=== PATIENT | female | born 2000 | race Caucasian/White ===

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

== ENCOUNTER 2018-03-31 10:42 | Emergency (ER) | payer MEDICAID ==
[2018-03-31] MEDS ORDERED: TETRACAINE HCL 0.5% OPH SOLN 4 ML OD ONE (10:53)
[2018-03-31 10:56] VITALS: BP 129/82
--- NOTE | 2018-03-31 11:10 | ER Document Report ---
ED Eye Complaint - General Chief Complaint: Eye Problem Stated Complaint: EYE PAIN Time Seen by Provider: 03/31/18 10:51 Mode of Arrival: Ambulatory Information source: Patient Notes: 17-year-old female presented to ED for complaint of redness swelling and discomfort to the right upper inner eyelid that started yesterday. She states got worse this morning and was swollen. States there is no itchiness drainage noted. She states there was no matting to the eyelids. She states there is no visual disturbances. She states it just is painful. TRAVEL OUTSIDE OF THE [place] IN LAST 30 DAYS: No - HPI Onset: Yesterday Eye location: Right Injury: No Occurred at: Home Quality of pain: No pain Severity: Moderate Pain Level: 3 Associated symptoms: Pain, Redness, Other - Stye to the inner corner of the right upper lid. denies: Matting, Eyelid swelling, Orbital swelling - Related Data Allergies/Adverse Reactions: Penicillins Allergy (Verified 03/31/18 10:45) Past Medical History - General Information source: Patient - Social History Smoking Status: Never Smoker Cigarette use (# per day): No Chew tobacco use (# tins/day): No Smoking Education Provided: No Frequency of alcohol use: None Drug Abuse: Marijuana Occupation: [employer] Lives with: Alone Family History: Reviewed & Not Pertinent Patient has suicidal ideation: No Patient has homicidal ideation: No - Past Medical History Cardiac Medical History: Reports: None Pulmonary Medical History: Reports: None EENT Medical History: Reports: None Neurological Medical History: Reports: Hx Migraine Endocrine Medical History: Reports: None Renal/ Medical History: Reports: None Malignancy Medical History: Reports: None GI Medical History: Reports: None Musculoskeletal Medical History: Reports None Skin Medical History: Reports None Psychiatric Medical History: Reports: Hx Depression Traumatic Medical History: Reports: None Infectious Medical History: Reports: None Past Surgical History: Reports: Hx Appendectomy - Immunizations Immunizations up to date: Yes Hx Diphtheria, Pertussis, Tetanus Vaccination: Yes Review of Systems - Review of Systems Constitutional: No symptoms reported EENT: Eye pain. denies: Eye discharge, Blurred vision, Tearing, Double vision Cardiovascular: No symptoms reported Respiratory: No symptoms reported Gastrointestinal: No symptoms reported Genitourinary: No symptoms reported Female Genitourinary: No symptoms reported Musculoskeletal: No symptoms reported Skin: No symptoms reported Hematologic/Lymphatic: No symptoms reported Neurological/Psychological: No symptoms reported -: Yes All other systems reviewed and negative Physical Exam - Vital signs Vitals: Temp Pulse Resp BP Pulse Ox 99.0 F 78 16 129/82 H 98 03/31/18 10:55 03/31/18 10:55 03/31/18 10:55 03/31/18 10:55 03/31/18 10:55 Interpretation: Normal - General General appearance: Appears well, Alert - HEENT Head: Normocephalic, Atraumatic Eyes: Normal, Other - Stye to the right upper inner eyelid Eyelashes: Normal Pupils: PERRL Ears: Normal External canal: Normal Tympanic membrane: Normal Sinus: Normal Nasal: Normal Mouth/Lips: Normal Pharynx: Normal Neck: Normal - Respiratory Respiratory status: No respiratory distress Chest status: Nontender Breath sounds: Normal Chest palpation: Normal - Cardiovascular Rhythm: Regular Heart sounds: Normal auscultation Murmur: No - Abdominal Inspection: Normal Distension: No distension Bowel sounds: Normal Tenderness: Nontender Organomegaly: No organomegaly - Back Back: Normal, Nontender - Extremities General upper extremity: Normal inspection, Nontender, Normal color, Normal ROM , Normal temperature General lower extremity: Normal inspection, Nontender, Normal color, Normal ROM , Normal temperature, Normal weight bearing. No: Mandy's sign - Neurological Neuro grossly intact: Yes Cognition: Normal Orientation: AAOx4 Facundo Coma Scale Eye Opening: Spontaneous Facundo Coma Scale Verbal: Oriented Preston Coma Scale Motor: Obeys Commands Preston Coma Scale Total: 15 Speech: Normal Motor strength normal: LUE, RUE, LLE, RLE Sensory: Normal - Psychological Associated symptoms: Normal affect, Normal mood - Skin Skin Temperature: Warm Skin Moisture: Dry Skin Color: Normal Course - Vital Signs Vital signs: Temp Pulse Resp BP Pulse Ox 99.0 F 78 16 129/82 H 98 03/31/18 10:55 03/31/18 10:55 03/31/18 10:55 03/31/18 10:55 03/31/18 10:55 Discharge - Discharge Clinical Impression: external stye right eye Internal hordeolum of right eye Qualifiers: Eyelid: upper Qualified Code(s): H00.021 - Hordeolum internum right upper eyelid Condition: Stable Disposition: HOME, SELF-CARE Instructions: [facility] Additional Instructions: Sty Your examination reveals that you have a sty. This is an infection of a hair follicle in the eyelid. As the infection progresses, it forms an abscess along the edge of the eyelid. A sty causes a lot of swelling and tenderness. As the body fights the infection, a lump forms. The knot slowly goes away over a couple of weeks. Treatment includes applying warm compresses to the eye for 10 to 15 minutes every two or three hours. Usually, the infection will drain from the abscess spontaneously, however, some sties require surgical drainage. You may be given antibiotic eye drops to prevent the infection from spreading to the surface of the eye. If the doctor is concerned that the infection is severe, you may be given antibiotics by mouth or shot. Call the doctor at once if vision decreases, if swelling becomes severe, or if eye pain becomes severe. See the doctor for follow-up should you fail to improve as expected. FOLLOW-UP CARE: If you have been referred to a physician for follow-up care, call the physician s office for an appointment as you were instructed or within the next two days. If you experience worsening or a significant change in your symptoms, notify the physician immediately or return to the Emergency Department at any time for re-evaluation. Forms: Elevated Blood Pressure Referrals: COLLINS MILLIGAN MD [ACTIVE STAFF] - Follow up tomorrow
== END 2018-03-31 11:45 | disposition home or self-care (01) ==
LOC: ER 10:42
DX: H00.021 Hordeolum internum right upper eyelid (principal); H00.013 Hordeolum externum right eye, unspecified eyelid; Z88.0 Allergy status to penicillin
CPT/HCPCS: 99283; J3490

== ENCOUNTER 2019-06-07 18:29 | Emergency (ER) | payer SELFPAY ==
[2019-06-07] MEDS ORDERED: ONDANSETRON 4 MG TAB.RAPDIS PO ONE (19:29)
[2019-06-07 20:11] LABS: ABSOLUTE BASOPHILS # (AUTO) 0.1 10^3/uL (0.0-0.2); ABSOLUTE EOSINOPHILS # (AUTO) 0.6 10^3/uL (0.0-0.6); ABSOLUTE LYMPHOCYTES (AUTO) 1.9 10^3/uL (0.5-4.7); ABSOLUTE MONOCYTES (AUTO) 1.3 10^3/uL (0.1-1.4); ABSOLUTE NEUT (AUTO) 15.7 10^3/uL (1.7-8.2); BASOPHILS % (AUTO) 0.5 % (0-2); HEMATOCRIT 40.2 % (36.0-47.0); HEMOGLOBIN 13.6 g/dL (12.0-15.5); LYMPHOCYTES % (AUTO) 9.9 % (13-45); MEAN CORPUSCULAR HGB CONC 33.9 g/dL (32.0-36.0); MEAN CORPUSCULAR VOLUME 83 fl (80-97); MONOCYTES % (AUTO) 6.5 % (3-13); PLATELET COUNT 288 10^3/uL (150-450); RED BLOOD COUNT 4.86 10^6/uL (3.72-5.28); RED CELL DISTRIBUTION WIDTH 14.3 % (11.5-14.0); SEGMENTED NEUTROPHILS % (AUTO) 80.1 % (42-78); TOTAL CELLS COUNTED % (AUTO) 100 %; WHITE BLOOD COUNT 19.6 10^3/uL (4.0-10.5)
[2019-06-07 20:22] LABS: APPEARANCE,URINE CLOUDY; BILIRUBIN,URINE NEGATIVE (NEGATIVE); COLOR,URINE YELLOW; GLUCOSE, URINE NEGATIVE (NEGATIVE); KETONES,URINE NEGATIVE (NEGATIVE); PROTEIN,URINE 30 mg/dL (NEGATIVE); URINE SPECIFIC GRAVITY 1.023; UROBILINOGEN,URINE NEGATIVE mg/dL (<2.0)
[2019-06-07 20:27] LABS: A TYPE INFLUENZA AG NEGATIVE (NEGATIVE); B INFLUENZA AG NEGATIVE (NEGATIVE)
[2019-06-07 20:35] LABS: ALBUMIN 4.2 g/dL (3.5-5.0); ALKALINE PHOSPHATASE 65 U/L (38-126); ANION GAP 12 (5-19); ASPARTATE AMINO TRANSFERASE 17 U/L (14-36); BILIRUBIN,TOTAL 0.6 mg/dL (0.2-1.3); BLOOD UREA NITROGEN 7 mg/dL (7-20); CALCIUM 9.2 mg/dL (8.4-10.2); CARBON DIOXIDE 22 mmol/L (22-30); CHLORIDE 105 mmol/L (98-107); GLUCOSE 89 mg/dL (75-110); POTASSIUM 3.9 mmol/L (3.6-5.0); TOTAL PROTEIN 7.3 g/dL (6.3-8.2)
--- NOTE | 2019-06-07 23:29 | RADIOLOGY REPORT (SQ) ---
EXAM DESCRIPTION: XR CHEST 2 VIEWS COMPLETED DATE/TME: 06/07/2019 22:54 CLINICAL HISTORY: 19 years, Female, cough COMPARISON: None. NUMBER OF VIEWS: 2 TECHNIQUE: 2 views of the chest LIMITATIONS: None. FINDINGS: Heart size normal. Lungs clear. No pneumothorax IMPRESSION: Negative chest copyright 2011 [employer]- All Rights Reserved
[2019-06-08] MEDS ORDERED: IPRATROPIUM/ALBUTEROL 0.5-2.5 MG/3 ML AMPUL NEB ONE (00:27)
[2019-06-08] MEDS ORDERED: NORMAL SALINE 1000 ML 1,000 ML IV ONE (00:27)
[2019-06-08] MEDS ORDERED: METOCLOPRAMIDE HCL INJ/PF 10 MG/2 ML SDV IV ONE (00:27)
--- NOTE | 2019-06-08 00:48 | ER Document Report ---
ED Flu Like - General Chief Complaint: Flu Symptoms Stated Complaint: FEVER,VOMITING,BODY ACHES Time Seen by Provider: 06/07/19 19:23 Notes: CHIEF COMPLAINT: Cough, vomiting with cough, fever HPI: 19-year-old female presenting with a sibling for similar complaints complaining of cough over the last 2 days with generalized body ache. Has had multiple episodes of vomiting today with coughing episodes. Patient feels like she is subjectively wheezing. States she has had a low-grade fever today. Denies abdominal pain or diarrhea. Denies chest pain. Complains of frontal headache and facial pain with congestion, complains of mild sore throat ROS: See HPI - all other systems were reviewed and are otherwise negative Constitutional: Positive fever Eyes: no drainage, no blurred vision ENT: Positive runny nose, positive sore throat, mild sinus pressure Cardiovascular: no chest pain Resp: Positive SOB, positive cough GI: Positive vomiting after cough, no diarrhea, no abdominal pain : no dysuria Integumentary: no rash Allergy: no hives Musculoskeletal: no extremity pain or swelling Neurological: no numbness/tingling, no weakness MEDICATIONS: I agree with the patient medications as charted by the RN. ALLERGIES: I agree with the allergies as charted by the RN. PAST MEDICAL HISTORY/PAST SURGICAL HISTORY: Reviewed and agree as charted by RN. SOCIAL HISTORY: Reviewed and agree as charted by RN. FAMILY HISTORY: No significant familial comorbid conditions directly related to patient complaint EXAM: Reviewed vital signs as charted by RN. CONSTITUTIONAL: Alert and oriented and responds appropriately to questions. Wel l-appearing; well-nourished, mild distress secondary to cough EYES: PERRL; Conjunctivae clear, sclerae non-icteric ENT: normal nose; positive clear rhinorrhea; moist mucous membranes; pharynx without lesions noted, no uvula edema or deviation, no tonsillar hypertrophy, phonation normal NECK: Supple without meningismus; non-tender; no cervical lymphadenopathy, no masses CARD: Tachycardic; no murmurs, no clicks, no rubs, no gallops; symmetric distal pulses RESP: Normal chest excursion without splinting or tachypnea; breath sounds clear and equal bilaterally; no wheezes, no rhonchi, no rales, pulse oximetry 99% on room air not hypoxic. Spastic cough is noted ABD/GI: Normal bowel sounds; non-distended; soft, non-tender, no rebound, no guarding; no palpable organomegaly or masses. BACK: The back appears normal and is non-tender to palpation, there is no CVA tenderness EXT: Normal ROM in all joints; non-tender to palpation; no cyanosis, no effusions, no edema SKIN: Normal color for age and race; warm; dry; good turgor; no acute lesions noted NEURO: Moves all extremities equally; Motor and sensory function intact PSYCH: The patient's mood and manner are appropriate. Grooming and personal hygiene are appropriate. MDM: 19-year-old female presenting for flulike symptoms for 2 days. Vomiting is mostly posttussive. Her lung sounds are clear to auscultation chest x-ray ordered in the triage process was negative for acute findings. Her lab work shows a moderate leukocytosis this may be reactive to the vomiting episode she has been having with the cough. She has absolutely no abdominal pain on exam. She has no infiltrate on x-ray suggesting pneumonia. She is tachycardic still, will give IV fluids, breathing treatment and reassess TRAVEL OUTSIDE OF THE [place] IN LAST 30 DAYS: No - Related Data Allergies/Adverse Reactions: Penicillins Allergy (Verified 03/31/18 10:45) Home Medications: birthcontrol, zoloft, buspar, naproxen, Past Medical History - Social History Smoking Status: Never Smoker Chew tobacco use (# tins/day): No Frequency of alcohol use: None Drug Abuse: Marijuana Family History: Reviewed & Not Pertinent Patient has suicidal ideation: No Patient has homicidal ideation: No Neurological Medical History: Reports: Hx Migraine Renal/ Medical History: Denies: Hx Peritoneal Dialysis Psychiatric Medical History: Reports: Hx Depression Past Surgical History: Reports: Hx Appendectomy - Immunizations Immunizations up to date: Yes Hx Diphtheria, Pertussis, Tetanus Vaccination: Yes Physical Exam - Vital signs Vitals: Temp Pulse Resp BP Pulse Ox 99.8 F 121 H 20 141/97 H 100 06/07/19 18:44 06/07/19 18:44 06/07/19 18:44 06/07/19 18:44 06/07/19 18:44 Course - Re-evaluation Re-evalutation: 06/08/19 02:39 Heart rate has improved. Patient feels better after breathing treatment states that she has an inhaler at home. Will write patient for Zofran for nausea although it sounded mostly posttussive. Her elevated leukocytosis was likely reactive to her vomiting episodes. She has no abdominal pain on repeat exam. No dysuria complaint. Sister had similar symptoms likely viral etiology - Vital Signs Vital signs: Temp Pulse Resp BP Pulse Ox 98.6 F 102 H 16 130/81 H 97 06/08/19 01:05 06/08/19 01:05 06/08/19 01:05 06/08/19 01:05 06/08/19 01:05 - Laboratory Result Diagrams: 06/07/19 19:28 06/07/19 19:28 Laboratory results interpreted by me: 06/07/19 06/07/19 06/07/19 19:28 19:28 19:28 WBC 19.6 H RDW 14.3 H Lymph % (Auto) 9.9 L Absolute Neuts (auto) 15.7 H Seg Neutrophils % 80.1 H Creatinine 0.43 L Urine Protein 30 H Urine Blood LARGE H Leukocyte Esterase Rfl TRACE H Discharge - Discharge Clinical Impression: Acute bronchospasm due to viral infection, Dehydration Vomiting Qualifiers: Vomiting type: unspecified Vomiting Intractability: unspecified Nausea presence : unspecified Qualified Code(s): R11.10 - Vomiting, unspecified Condition: Stable Disposition: HOME, SELF-CARE Additional Instructions: Use your albuterol inhaler 2 puffs every 4 hours for coughing or wheezing. Take Zofran for recurrent nausea or vomiting. Follow-up primary care provider for reevaluation call for appointment Prescriptions: Ondansetron [Zofran Odt 4 mg Tablet] 1 - 2 tab PO Q4H PRN #15 tab.rapdis PRN Reason: For Nausea/Vomiting Forms: Return to Work
[2019-06-08 02:53] VITALS: BP 126/81
== END 2019-06-08 03:01 | disposition home or self-care (01) ==
LOC: ER 18:29
DX: J20.8 Acute bronchitis due to other specified organisms (principal); B97.89 Other viral agents as the cause of diseases classified elsewhere; E86.0 Dehydration; R11.10 Vomiting, unspecified; R50.9 Fever, unspecified; M79.10 Myalgia, unspecified site; R05 Cough; R51 Headache; R09.81 Nasal congestion; J02.9 Acute pharyngitis, unspecified; R09.89 Other specified symptoms and signs involving the circulatory and respiratory systems
CPT/HCPCS: 36415; 87070; 87880; 84703; 85025; 80053; 81001; 87804; 71046; S0119; J2765; J7030; J7620; 94640; 96361; 96374; 99283

== ENCOUNTER 2019-10-16 07:38 | Emergency (ER) | payer SELFPAY ==
--- NOTE | 2019-10-16 08:58 | ER Document Report ---
ED ENT - General Chief Complaint: Sore Throat Stated Complaint: SORE THROAT/FEVER Time Seen by Provider: 10/16/19 08:35 Notes: CHIEF COMPLAINT: Sore throat for 2 days with fever today HPI: 19-year-old female presenting to the emergency department complaining of sore throat more prominent on the left side that began yesterday. Fever today up to 101. Denies cough, abdominal pain nausea vomiting or rash. ROS: See HPI - all other systems were reviewed and are otherwise negative Constitutional: + fever Eyes: no drainage, no blurred vision ENT: no runny nose, + sore throat Cardiovascular: no chest pain Resp: no SOB, no cough GI: no vomiting, no diarrhea, no abdominal pain : no dysuria Integumentary: no rash Allergy: no hives Musculoskeletal: no extremity pain or swelling Neurological: no numbness/tingling, no weakness MEDICATIONS: I agree with the patient medications as charted by the RN. ALLERGIES: I agree with the allergies as charted by the RN. PAST MEDICAL HISTORY/PAST SURGICAL HISTORY: Reviewed and agree as charted by RN. SOCIAL HISTORY: Reviewed and agree as charted by RN. FAMILY HISTORY: No significant familial comorbid conditions directly related to patient complaint EXAM: Reviewed vital signs as charted by RN. CONSTITUTIONAL: Alert and oriented and responds appropriately to questions. Well-appearing; well-nourished HEAD: Normocephalic; atraumatic EYES: PERRL; Conjunctivae clear, sclerae non-icteric ENT: normal nose; no rhinorrhea; moist mucous membranes; bilateral pharyngeal erythema with slight exudate noted, no uvula edema or deviation, no tonsillar hypertrophy, phonation normal. No soft palate swelling. Phonation is normal NECK: Supple without meningismus; non-tender; positive left anterior cervical lymphadenopathy, no masses CARD: tachycardic; no murmurs, no clicks, no rubs, no gallops; symmetric distal pulses RESP: Normal chest excursion without splinting or tachypnea; breath sounds clear and equal bilaterally; no wheezes, no rhonchi, no rales, pulse oximetry 98% on room air not hypoxic ABD/GI: Normal bowel sounds; non-distended; soft, non-tender, no rebound, no guarding; no palpable organomegaly or masses. BACK: The back appears normal and is non-tender to palpation, there is no CVA tenderness EXT: Normal ROM in all joints; non-tender to palpation; no cyanosis, no effusions, no edema SKIN: Normal color for age and race; warm; dry; good turgor; no acute lesions noted NEURO: Moves all extremities equally; Motor and sensory function intact PSYCH: The patient's mood and manner are appropriate. Grooming and personal hygiene are appropriate. MDM: 19-year-old female with sore throat more prominent on the left but she has no soft palate swelling suggesting a definitive abscess at this time. Her strep test is negative. Will obtain Monospot. TRAVEL OUTSIDE OF THE [place] IN LAST 30 DAYS: No - Related Data Allergies/Adverse Reactions: Penicillins Allergy (Verified 10/16/19 08:07) Past Medical History - Social History Smoking Status: Never Smoker Family History: Reviewed & Not Pertinent Patient has homicidal ideation: No Neurological Medical History: Reports: Hx Migraine Renal/ Medical History: Denies: Hx Peritoneal Dialysis Psychiatric Medical History: Reports: Hx Depression Past Surgical History: Reports: Hx Appendectomy - Immunizations Immunizations up to date: Yes Hx Diphtheria, Pertussis, Tetanus Vaccination: Yes Physical Exam - Vital signs Vitals: Temp Pulse Resp BP Pulse Ox 98.7 F 127 H 20 130/75 H 97 10/16/19 07:43 10/16/19 07:43 10/16/19 07:43 10/16/19 07:43 10/16/19 07:43 Course - Re-evaluation Re-evalutation: 10/16/19 10:29 Patient Monospot is positive, strep is negative. Discussed with the patient we discussed return precautions. Will discharge 10/16/19 10:36 Patient remains mildly tachycardic with a heart rate of 118, states that she drank an entire bottle of NyQuil with a decongestant in it prior to coming to the emergency department. Give her strict return precautions regarding the tachycardia and hydration as well as medication use Trae is no longer here - Vital Signs Vital signs: Temp Pulse Resp BP Pulse Ox 98.7 F 127 H 20 130/75 H 97 10/16/19 07:43 10/16/19 07:43 10/16/19 07:43 10/16/19 07:43 10/16/19 07:43 - Laboratory Laboratory results interpreted by me: 10/16/19 09:04 Monotest POSITIVE H Discharge - Discharge Clinical Impression: Tachycardia Mononucleosis Qualifiers: Infectious mononucleosis etiology: unspecified organism Infectious mononucleosis complication: without complication Qualified Code(s): B27.90 - Infectious mononucleosis, unspecified without complication Condition: Stable Disposition: HOME, SELF-CARE Additional Instructions: You are positive for mononucleosis today. Hydrate well at home. Motrin for fever or body ache. Salt water gargles for sore throat. Return to the emergency department if you develop abdominal pain or vomiting. Follow-up with her primary care provider for reevaluation as needed Forms: Return to Work Referrals: LOR MADISON MD [ACTIVE STAFF] - Follow up as needed
[2019-10-16 10:59] VITALS: BP 136/86
== END 2019-10-16 10:41 | disposition home or self-care (01) ==
LOC: ER 07:38
DX: B27.90 Infectious mononucleosis, unspecified without complication (principal); R00.0 Tachycardia, unspecified; J02.9 Acute pharyngitis, unspecified; R50.9 Fever, unspecified
CPT/HCPCS: 36415; 86308; 87070; 87077; 87880; 99283